=== PATIENT | male | born 1960 | race Caucasian/White ===

== ENCOUNTER → 2019-03-21 | Day surgery (SDC) | payer BC ==
[2019-03-14 13:49] LABS: BASOPHILS % 0.5 % (0.0-1.0); EOSINOPHILS # (AUTO) 0.2 (0.0-0.4); HEMATOCRIT 40.4 % (38.2-49.6); HEMOGLOBIN 13.5 g/dL (14.0-18.0); LYMPHOCYTES # (AUTO) 1.7 (1.0-3.2); LYMPHOCYTES % 30.1 % (18.0-39.1); MEAN CORPUSCULAR HEMOGLOBIN 32.4 pg (28-32); MEAN CORPUSCULAR HGB CONC 33.4 g/dL (31-35); MEAN CORPUSCULAR VOLUME 96.9 fL (81-99); MONOCYTES # (AUTO) 0.6 (0.2-0.8); MONOCYTES % 10.2 % (4.4-11.3); NEUTROPHILS # (AUTO) 3.1 (2.1-6.9); NEUTROPHILS % 55.5 % (38.7-80.0); PLATELET COUNT 307 x10e3/uL (140-360); RED BLOOD COUNT 4.17 x10e6/uL (4.3-5.7); RED CELL DISTRIBUTION WIDTH 12.7 % (11.7-14.4)
[~2019-03-21] MED LIST: ASPIR 8181 MG PO; BUPIVACAINE HCL 0.5% 10ML MPF VIAL INJ ONE; DIOVAN HCT 3201 EACH PO; FENTANYL CITRATE/PF 100MCG/2 ML INJ ONE; IOPAMIDOL 610MG/1ML 300 MG/ML VIAL IV ONE; LIDOCAINE HCL 1% LOCAL INJ 20 ML VIAL ONE; LIDOCAINE HCL 2% LOCAL INJ 5 ML SDV VIAL INJ ONE; MIDAZOLAM HCL 2 MG/2 ML VIAL ONE; ONE DAILY MULT1 EAC1 PO; PROPOFOL IV EMULSION 10 MG/ML 20 ML VIAL ONE; TRIAMCINOLONE ACET 40 MG/ML VIAL ONE
[2019-03-21 07:45] VITALS: BP 104/71
--- NOTE | 2019-03-21 10:45 | Operative Report ---
DATE OF PROCEDURE: 03/21/2019 SURGEON: El Lozano MD PREOPERATIVE DIAGNOSIS: Osteoarthritis right hip. POSTOPERATIVE DIAGNOSIS: Osteoarthritis right hip. PROCEDURE: Fluoroscopic guided corticosteroid injection, right hip. INDICATIONS: The patient is a 58-year-old gentleman, who has advanced osteoarthritis of his right hip. He also has a body mass index of over 42. We have discussed the options. He would ultimately like to proceed with a right total hip replacement. The benefits of preoperative weight loss have been discussed. He would like to try a medically supervised weight loss program, but would also like something to temporize his pain. The risks and benefits of a fluoroscopic guided corticosteroid injection have been discussed. He states he understands and wishes to proceed. PROCEDURE IN DETAIL: The patient was brought to the procedure room and given a MAC anesthetic. His right hip was prepped and draped in a sterile manner. A preoperative time-out was performed. A C-arm image intensifier was used to assist in placing an 18-gauge spinal needle in the hip joint. A small amount of radiopaque dye was injected to confirm intra-articular positioning. A mixture of 9 mL of 0.5% Marcaine and 40 mg of Depo-Medrol were then injected into the hip. The needle was retrieved and a Band-Aid was applied. He was transported to the recovery room in stable condition. There was no blood loss and all needle and sponge counts were correct. El Lozano MD DR/DEV /[id number]
== END | disposition home or self-care (01) ==
LOC: OR 05:00
PROVIDERS: ATTEND Specialist
DX: M16.11 Unilateral primary osteoarthritis, right hip (principal); E66.01 Morbid (severe) obesity due to excess calories; M54.5 Low back pain; I10 Essential (primary) hypertension; I31.3 Pericardial effusion (noninflammatory); Z01.810 Encounter for preprocedural cardiovascular examination; Z01.812 Encounter for preprocedural laboratory examination; Z79.82 Long term (current) use of aspirin; Z68.41 Body mass index [BMI] 40.0-44.9, adult
CPT/HCPCS: 20610; 36415; 77002; 85025; 93005; J2001; J2250; J2704; J3301; Q9967; J3010

== ENCOUNTER 2019-06-21 09:26 | Inpatient (IN) | payer BC ==
[2019-06-20 09:42] LABS: BASOPHILS # (AUTO) 0.1 (0.0-0.1); BASOPHILS % 1.2 % (0.0-1.0); EOSINOPHILS # (AUTO) 0.2 (0.0-0.4); EOSINOPHILS % 3.7 % (0.0-6.0); HEMATOCRIT 42.6 % (38.2-49.6); HEMOGLOBIN 14.4 g/dL (14.0-18.0); LYMPHOCYTES # (AUTO) 1.4 (1.0-3.2); MEAN CORPUSCULAR HEMOGLOBIN 33.3 pg (28-32); MEAN CORPUSCULAR HGB CONC 33.8 g/dL (31-35); MEAN CORPUSCULAR VOLUME 98.6 fL (81-99); MONOCYTES # (AUTO) 0.6 (0.2-0.8); MONOCYTES % 9.8 % (4.4-11.3); NEUTROPHILS # (AUTO) 3.7 (2.1-6.9); NEUTROPHILS % 60.8 % (38.7-80.0); PLATELET COUNT 338 x10e3/uL (140-360); RED BLOOD COUNT 4.32 x10e6/uL (4.3-5.7); RED CELL DISTRIBUTION WIDTH 12.6 % (11.7-14.4)
[2019-06-20 10:11] LABS: ANION GAP 14.8 mmol/L (8-16); BLOOD UREA NITROGEN 26 mg/dL (7-26); BUN/CREATININE RATIO 31 (6-25); CARBON DIOXIDE 23 mmol/L (22-29); CHLORIDE 104 mmol/L (98-107); CREATININE, SERUM 0.85 mg/dL (0.72-1.25); EST GLOMERULAR FILTRATION RATE > 60 ML/MIN (60-); GLUCOSE 110 mg/dL (74-118); POTASSIUM 3.8 mmol/L (3.5-5.1); SODIUM 138 mmol/L (136-145)
[~2019-06-21] VITALS: Ht 182.9 cm; Wt 136.5 kg
[~2019-06-21 09:26] MED LIST changes: +ACETAMINOPHEN325 M1 PO; -BUPIVACAINE HCL 0.5% 10ML MPF VIAL INJ ONE; -FENTANYL CITRATE/PF 100MCG/2 ML INJ ONE; -IOPAMIDOL 610MG/1ML 300 MG/ML VIAL IV ONE; -LIDOCAINE HCL 1% LOCAL INJ 20 ML VIAL ONE; -LIDOCAINE HCL 2% LOCAL INJ 5 ML SDV VIAL INJ ONE; +MELOXICAM7.5 MG PO; -MIDAZOLAM HCL 2 MG/2 ML VIAL ONE; -PROPOFOL IV EMULSION 10 MG/ML 20 ML VIAL ONE; +ROPIVACAINE 246.25 MG, EPINEPHRINE HCL 1:1000 1ML 0.5 MG, CLONIDINE HCL 0.08 MG, KETORO... INJ ONE; -TRIAMCINOLONE ACET 40 MG/ML VIAL ONE
[2019-06-21] MEDS ORDERED: DEXAMETHASONE SOD PHOS 10 MG/1 ML VIAL ONE (10:17)
[2019-06-21] MEDS ORDERED: CELECOXIB 200 MG CAP ONE (10:17)
[2019-06-21] MEDS ORDERED: GABAPENTIN 300 MG CAP ONE (10:18)
[2019-06-21] MEDS ORDERED: CEFAZOLIN SOD 1 GM/NS 50ML 100 ML IV ONE (10:18)
[2019-06-21] MEDS ORDERED: TRANEXAMIC ACID 1,000 MG/10 ML ML ONE (11:17)
[2019-06-21] MEDS ORDERED: BACITRACIN 50,000 UNIT VIAL ONE (11:17)
[2019-06-21] MEDS ORDERED: VANCOMYCIN HCL 1,000 MG ONE (11:17)
[2019-06-21] MEDS ORDERED: SODIUM CHLORIDE 0.9% 500ML 500 ML ONE (11:17)
[2019-06-21] MEDS ORDERED: HYDROMORPHONE 1MG/1ML INJ ONE (12:42)
[2019-06-21] MEDS ORDERED: ACETAMINOPHEN 1000 MG/100 ML 100 ML IV ONE (12:42)
[2019-06-21] MEDS ORDERED: ONDANSETRON HCL INJ 2MG/ML 2ML 2 MG/ML VIAL IV PRN (13:15)
[2019-06-21] MEDS ORDERED: DOCUSATE SODIUM 100 MG CAP PO PRN (13:15)
[2019-06-21] MEDS ORDERED: PROMETHAZINE HCL (IM) 25 MG/ML VIAL IM PRN (13:15)
[2019-06-21] MEDS ORDERED: ACETAMINOPHEN 650 MG SUPP PR PRN (13:15)
[2019-06-21] MEDS ORDERED: KETOROLAC TROMETHAMINE 30 MG/ML VIAL IV PRN (13:15)
[2019-06-21] MEDS ORDERED: DIPHENHYDRAMINE HCL INJ 50 MG/ML VIAL IM/IV PRN (13:15)
[2019-06-21] MEDS ORDERED: HYDROCODONE/APAP 7.5MG-325MG 1 EA TAB PO PRN (13:15)
[2019-06-21] MEDS ORDERED: FENTANYL CITRATE/PF 100MCG/2 ML INJ ONE ×2 (13:37→18:51)
--- NOTE | 2019-06-21 14:11 | NUR ---
RECEIVED PATIENT FROM PACU. PATIENT A/O X3, EVEN RESPIRATIONS ON 2LNC. LUNG SOUNDS CLEAR TO AUSCULTATION. RIGHT HIP INCISION CLEAN ,DRY, AND INTACT. FOOT PUMPS IN PLACE. LEFT KATHERINE HOSE IN PLACE. RIGHT HAND 20 GAUGE IV WITH NS @ 100 CC/HR. PAIN 5/10 RIGHT HIP, PRN PAIN MEDICATION. ORIENTED PATIENT TO ROOM AND CALL LIGHT. BED LOW, WHEELS LOCKED, SIDE RAILS X2. CALL LIGHT IN REACH WILL CONTINUE TO MONITOR PATIENT.
--- NOTE | 2019-06-21 14:33 | Diagnostic Imaging Report ---
Exam: Right hip one view Clinical history: Hip replacement next Findings: The patient is status post right total hip arthroplasty. The joint prosthesis appears in its expected position for AP projection. There is no evidence of acute fracture or malalignment. The soft tissue is unremarkable. Impression: 1. Status post right total hip arthroplasty with postoperative changes. Signed by: Dr. Tee Perez MD on 06/21/2019 2:29 PM
[2019-06-21 14:40] VITALS: BP 111/68
--- NOTE | 2019-06-21 15:01 | Operative Report ---
DATE OF PROCEDURE: 06/21/2019 SURGEON: El Lozano MD HEALTH CARE / MEDICAL JOB TITLES: Mckinley Chung, certified PA. PREOPERATIVE DIAGNOSIS: Osteoarthritis, right hip. POSTOPERATIVE DIAGNOSIS: Osteoarthritis, right hip. PROCEDURE: Right total hip arthroplasty, * added complexity secondary to a body mass index over 41. INDICATIONS: The patient is a 58-year-old gentleman with advanced osteoarthritis of his right hip. He has failed conservative management and would like to proceed with a right total hip replacement. The risks and benefits have been explained. The added challenges and potential for perioperative complications due to his body mass index has been thoroughly explained and discussed. He states he understands. He wishes to proceed. PROCEDURE IN DETAIL: The patient was brought to the operating room and placed under general anesthetic. He was positioned in the left lateral decubitus position. He received prophylactic antibiotics and tranexamic acid in the holding area. He declined the offer of a spinal anesthetic. His right hip was prepped and draped in a sterile manner. Added time and challenges were encountered due to the patient's body mass index over 41. A preoperative time-out was performed. A posterior approach was made to the right hip. A slightly more extensile incision was necessary. Hemostasis was obtained with electrocautery. A deep Charnley self-retaining retractor was placed. Care was taken to avoid injury to the sciatic nerve. The posterior capsule was exposed and released. The piriformis attachment was preserved. The hip was dislocated. An oscillating saw was used to resect the femoral head. Complete loss of articular cartilage was noted. Acetabular retractors were placed. Again, some challenges were encountered due to the altered surgical field. The labral remnant was removed. The true floor of the acetabulum was established with a 46 mm reamer. The socket was then sequentially reamed up to 57 mm. This accomplished bleeding hemispherical cancellous bone. Small subchondral cysts in the dome of the acetabulum were debrided with a curved curette. A Odalys Biomet 58 mm outer diameter OsseoTi socket was then impacted into place. Good fixation and bone quality were encountered. Fixation was augmented with a single 25 mm screw placed into the ilium. The hip had been thoroughly irrigated several times with a shower tip pulsatile lavage and a spray mixture of diluted vancomycin and polymyxin spray. A highly cross-linked polyethylene liner was then impacted into place. Care was taken to make sure that there was no evidence of soft tissue interposition. The socket was packed with a moistly soaked lap sponge and attention was directed towards the proximal femur. A box cutting osteotome and taper pin reamer were used to establish entry to the femoral canal. The taper lock broaches were impacted. A size 15 stem provided good rotational stability and canal fill for trial reduction. Trial reductions were performed and I elected to use a +3 mm neck. This allowed a nice congregation of limb length, soft tissue balancing and a full arc of motion without impingement and good stability. The trial implants were removed. A 100 mL premixed pericapsular JONELLE injection was placed into the surrounding soft tissue. The femoral canal was thoroughly irrigated. The implant was seated and the head and neck were placed onto the clean and dry stem. A final reduction was performed. The capsule was well preserved and easily repaired with interrupted #2 Ethibond. The proximal tensor fascia and gluteal fascia were closed with interrupted #2 Ethibond. The deep wound was closed after 500 mg of vancomycin powder. The skin was closed with subcuticular Vicryl and violette. A sterile Aquacel bandage was applied. He was returned to the supine position, extubated and transported to the recovery room in stable condition. Estimated blood loss was 75 mL. At the end of the procedure, all needle and sponge counts were correct. El Lozano MD DR/DEV /[id number]
[2019-06-21] MEDS: SODIUM CHLORIDE 0.9% 1000ML 1,000 ML IV SCH ×2 (15:07→23:15)
[2019-06-21 15:38] VITALS: BP 111/68
[2019-06-21 15:40] VITALS: BP 111/68
--- NOTE | 2019-06-21 16:15 | NUR ---
IV CATHETER TIP BENT AND OCCLUDED. IV NOT FLUSHING. REMOVED RIGHT HAND IV. CATHETER TIP INTACT AND PRESSURE DRESSING APPLIED ON REMOVAL.
--- NOTE | 2019-06-21 16:31 | NUR ---
PATIENT AMBULATED 420 FT WITH PT.
[2019-06-21] MEDS: CELECOXIB 100 MG CAP PO SCH (17:28)
[2019-06-21] MEDS: ASPIRIN 325 MG TAB PO SCH (17:28)
[2019-06-21] MEDS ORDERED: DEXAMETHASONE SOD PHOS INJ 4 MG/ML VIAL ONE (18:27)
[2019-06-21] MEDS ORDERED: PROPOFOL IV EMULSION 10 MG/ML 20 ML VIAL ONE (18:27)
[2019-06-21] MEDS ORDERED: SEVOFLURANE INHAL SOLN 250 ML PEN BTL ONE (18:27)
[2019-06-21] MEDS ORDERED: LIDOCAINE HCL 2% LOCAL INJ 5 ML SDV VIAL INJ ONE (18:27)
[2019-06-21] MEDS ORDERED: ROCURONIUM BROMIDE 10 MG/ML 5ML VIAL ONE (18:27)
[2019-06-21] MEDS ORDERED: EPHEDRINE SULFATE INJ 50 MG/10 ML SYR ONE (18:27)
[2019-06-21] MEDS ORDERED: ONDANSETRON HCL INJ 2MG/ML 2ML 2 MG/ML VIAL ONE (18:27)
[2019-06-21] MEDS: ACETAMINOPHEN 1000 MG/100 ML IV SCH (18:46)
[2019-06-21] MEDS ORDERED: MIDAZOLAM HCL 2 MG/2 ML VIAL ONE (18:51)
[2019-06-21 20:00] VITALS: BP 115/55
[2019-06-21] MEDS: CEFAZOLIN SOD 1 GM/NS 50ML 50 ML IV SCH (20:00)
[2019-06-21] MEDS ORDERED: ZOLPIDEM TARTRATE 5 MG TAB PO PRN (21:00)
[2019-06-21 21:48] VITALS: BP 115/55
[2019-06-21] MEDS: HYDROCODONE/APAP 5MG-325MG TAB PO PRN (22:37)
[2019-06-22] VITALS: BP 113/53
[2019-06-22] MEDS: ACETAMINOPHEN 1000 MG/100 ML IV SCH ×2 (00:10→05:55)
[2019-06-22 04:00] VITALS: BP 119/57
[2019-06-22] MEDS: CEFAZOLIN SOD 1 GM/NS 50ML 50 ML IV SCH (04:00)
[2019-06-22 05:28] LABS: HEMATOCRIT 36.1 % (38.2-49.6); HEMOGLOBIN 11.8 g/dL (14.0-18.0)
[2019-06-22] MEDS: HYDROCODONE/APAP 5MG-325MG TAB PO PRN (06:52)
--- NOTE | 2019-06-22 07:04 | NUR ---
RECEIVED PATIENT RESTING IN BED NO SIGNS OF DISTRESS. BED LOW, WHEELS LOCKED, SIDE RAILS X2. CALL LIGHT IN REACH WILL CONTINUE TO MONITOR PATIENT.
[2019-06-22 07:52] VITALS: BP 135/64
[2019-06-22] MEDS: ASPIRIN 325 MG TAB PO SCH (08:07)
[2019-06-22] MEDS: CELECOXIB 100 MG CAP PO SCH (08:07)
[2019-06-22 08:11] VITALS: BP 135/64
[2019-06-22] MEDS ORDERED: ONDANSETRON HCL 4 MG ORAL DISINTEGRATING TAB PO PRN (08:30)
[2019-06-22] MEDS: SODIUM CHLORIDE 0.9% 1000ML 1,000 ML IV SCH (09:00)
--- NOTE | 2019-06-22 09:33 | NUR ---
DR LICONA OFFICE PREARRANGED FOLLOWING DISCHARGE PLAN OF:RETURNING HOME TO [address] [id number] [facility] WITH HOME CARE PROVIDERS CONFIRMED WITH [facility] [phone] REFUSED DME THAT WERE ORDERED THROUGH DME SUPPLY HOUSE DUE TO NOT IN NETWORK. SUDEEP BERGER WITH WHEELS PROVIDED BY [facility], OBTAINED ALL SIGNATURES AND FILED PAPERWORK IN PACU FOR PROCESSING.
--- NOTE | 2019-06-22 10:55 | NUR ---
REMOVED PATIENTS IV. CATHETER TIP INTACT AND PRESSURE DRESSING APPLIED.
--- NOTE | 2019-06-22 11:00 | NUR ---
PATIENT DISCHARGED FROM FACILITY. PATIENT GATHERED ALL PERSONAL BELONGINGS, DISCHARGE INSTRUCTIONS, AND FOLLOW UP INFORMATION. LEFT UNIT IN WHEELCHAIR AND WENT HOME VIA PRIVATE AUTO, NO SIGNS OF DISTRESS LEAVING FACILITY.
--- NOTE | 2019-06-22 11:51 | Consultation ---
DATE OF CONSULTATION: REASON FOR CONSULTATION: Postop medical management. HISTORY OF PRESENT ILLNESS: The patient is a gentleman, status post right hip arthroplasty. He was doing well postoperatively with minimal pain of the right hip. REVIEW OF SYSTEMS: Negative for chest pain, fever, chills, nausea, vomiting, headache, shortness of breath, or dizziness. PAST MEDICAL HISTORY: Significant for high blood pressure and coronary artery disease. MEDICATIONS: 1. Aspirin. 2. Mobic. 3. Vitamin. 4. Diovan. ALLERGIES: NONE. SOCIAL HISTORY: Nonsmoker. Nondrinker. . Works full time staff interpreter. FAMILY HISTORY: Noncontributory. PHYSICAL EXAMINATION: VITAL SIGNS: Temperature 97.7, pulse 92, blood pressure 113/53, and saturations 95% on room air. GENERAL: No apparent distress, lying in bed. NECK: Supple. No lymphadenopathy. CARDIOVASCULAR: Regular rate and rhythm. LUNGS: Clear to auscultation bilaterally. ABDOMEN: Good bowel sounds. Soft, nontender. EXTREMITIES: No clubbing or cyanosis. NEUROLOGIC: Nonfocal. ASSESSMENT/PLAN: 1. Status post right hip arthroplasty. Continue with postoperative care and physical therapy. 2. Right hip pain. Continue with pain medicine. 3. Hypertension. Continue with his medication at discharge. 4. Anemia. Check a CBC. 5. History of coronary artery disease. Continue with his anticoagulants. Please see hospital chart for full details. MD JACKIE Patel/DEV /[id number]
[2019-06-22] MEDS ORDERED: ACETAMINOPHEN 1000 MG/100 ML IV PRN (13:15)
[2019-06-22] MEDS ORDERED: CELECOXIB 200 MG CAP PO SCH (17:00)
== END 2019-06-22 11:00 | disposition home health service (06) | DRG 470 ==
LOC: OR 09:26 → PACU V 13:18 → MED/SURG 14:31
PROVIDERS: ADMIT Specialist; ATTEND Specialist
PROC: 0SR904A Replacement of Right Hip Joint with Ceramic on Polyethylene Synthetic Substitute, Uncemented, Open Approach (ICD-10-PCS; principal; 2019-06-21 11:56)
DX: M16.11 Unilateral primary osteoarthritis, right hip (principal); I11.9 Hypertensive heart disease without heart failure
CPT/HCPCS: 36415; 72170; 80048; 85014; 85018; 85025; 86850; 86900; 86920; J0171; J0690; J1100; J1170; J1885; J2001; J2250; J2405; J2795; J3010; J3370; J7030; J7040